=== PATIENT | female | born 1980 | race Caucasian/White ===

== ENCOUNTER 2016-10-28 13:57 | Outpatient (RCR) | payer BC ==
--- OUTSIDE RECORDS SUMMARY | 2016-08-08 09:07 | XMS REPORT | Continuity of Care Document ---
Author Author [facility] Organization [facility] Address Unknown Phone Unavailable Care Team Providers Care Collect On Delivery Clerk Name Role Phone Robert Campos PCP [phone] Source Comments Some departments are not documenting in the electronic medical record. If you do not see the information that you expected, contact Release of Information in the Health Information Management department at [phone] for further assistance in locating additional records.[facility] Active Allergies and Adverse Reactions Allergen Noted Date Severity Reactions Comments Doxycycline 05/10/2016 Medium HIVES Sulfa (Sulfonamide 02/26/2016 Medium HIVES Antibiotics) Current Medications Prescription Sig. Disp. Refills Start End Date Status Date MULTIVITAMIN PO Take 1 Cap by mouth Active daily. levothyroxine (SYNTHROID) Take 88 mcg by mouth Active 88 mcg tablet daily. meloxicam (MOBIC) 15 mg Take by mouth as Needed Active tablet for Pain. loratadine (CLARITIN) 10 Take 10 mg by mouth as Active mg tablet Needed. diazepam (VALIUM) 5 mg Take 1 Tab by mouth every 40 Tab 0 04/08/20 Active tablet 6 hours as needed. 16 lidocaine-prilocaine Place a quarter size of 1 g 1 05/20/20 Active (EMLA) 2.5-2.5 % topical cream over port site 16 cream 30-45 minutes prior to having port accessed. oxyCODONE/acetaminophen Take 1-2 Tabs by mouth 40 Tab 0 05/22/20 Active (PERCOCET; ENDOCET; every 4 hours as needed 16 ROXICET) 5/325 mg tablet dexamethasone (DECADRON) Take 1 Tab by mouth twice 24 Tab 0 05/25/20 Active 4 mg tablet daily. Take 1 tab in the 16 am & pm the 3 days following chemo. ondansetron hcl (ZOFRAN Take 1 Tab by mouth every 21 Tab 3 05/25/20 Active ( HYDROCHLORIDE)) 4 mg 8 hours as needed for 16 tablet Nausea or Vomiting. prochlorperazine maleate Take 1 Tab by mouth every 30 Tab 3 05/25/20 Active (COMPAZINE) 10 mg tablet 6 hours as needed for 16 Nausea or Vomiting. LORazepam (ATIVAN) 0.5 mg Take 1 Tab by mouth every 30 Tab 0 05/25/20 Active tablet 6 hours as needed for 16 Nausea or Vomiting (insomnia). vitamins, multiple Take 1 Tab by mouth Active (MULTIPLE VITAMINS) daily. tablet Lactobacillus rhamnosus Take 1 Cap by mouth as Active GG (LACTOBACILLUS directed daily with RHAMNOSUS (GG)) 15 breakfast. 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 Oakes is a female who presented to [facility] on 02/25/2016 at age 35 for evaluation of left breast cancer. Left breast sono-guided biopsy 02/15/16 ([place], [place]) revealed grade 1 invasive ductal carcinoma. She underwent left areola sparing mastectomy/SLNB/TE placement on 03/30/16. Final pathology revealed 1.9 cm of grade 1 IDC, DCIS absent, LVI absent, all margins at least 1 cm, and 0/6 lymph nodes. BREAST IMAGING: Mammogram: -- Left diagnostic mammogram 02/15/16 ([place], [place]) revealed a 1.6 cm mass density at 7:00 with indistinct borders and spiculation. No other abnormalities were seen. Ultrasound: -- Left breast biopsy 02/15/16 ([place], [place]) revealed a 1.5 cm solid structure at 6-7:00. There was a 5 mm hyperechoic lymph node at 4:00. MRI: -- Bilateral breast MRI 03/03/16 () revealed RIGHT BREAST: There was no evidence of abnormal enhancement, mass, or axillary/internal mammary adenopathy. LEFT BREAST: There was a 1.2 x 1.7 x 1.3 cm solitary enhancing mass compatible with known malignancy demonstrating predominantly persistent enhancement kinetics at 7:00, 6 cm posterior to the nipple. No additional sites of abnormal mass or non mass enhancement were seen in the left breast. There was no left axillary or internal mammary adenopathy. REPRODUCTIVE HEALTH: Age at first Menarche: 10 Age at First Live : 18 Age at Menopause: premenopausal : 5 Para: 4 : 1 year PROCEDURE: Left areola sparing mastectomy/SLNB/TE placement, 03/30/16 PERTINENT PMH: Hypothyroidism, depression FAMILY HISTORY: First cousin with breast cancer PHYSICAL EXAM on PRESENTATION: Left breast: discrete mass at 7:00 5-6cm FTN, freely mobile from chest wall. Right breast: No palpable breast masses. No skin, nipple, or areolar change. No supraclavicular or axillary adenopathy bilaterally. MEDICAL ONCOLOGY: Dr. aGrcia REFERRED BY: Dr. Chandni Starks Most Recent Encounters Date Type Specialty Providers Description 07/22/2016 [facility] Oncology Daphney Garcia MD Encounter 07/22/2016 Office Visit Oncology Daphney Garcia MD Malignant neoplasm of lower-inner quadrant of left female breast (HCC) (Primary Dx) 07/22/2016 Nurse Only Plastic Surgery Shilpa Hunter RN 07/21/2016 Telephone Daphney Oconnell MD Results - labs 07/19/2016 Telephone Oncology Daphney Garcia MD Chemotherapy 07/08/2016 [facility] Daphney Oconnell MD Encounter 07/08/2016 Office Visit Daphney Oconnell MD Malignant neoplasm of left female breast, unspecified site of breast (HCC) (Primary Dx) 07/08/2016 Nurse Only Plastic Surgery Shilpa Hunter, EDGAR 07/08/2016 Nurse Only Breast Clinic / Breast María Elena Antunez MD At risk for lymphedema Center Fournier, Ashtyn Oneill RN (Primary Dx) 07/07/2016 Telephone Daphney Oconnell MD Results 06/24/2016 [facility] Oncology Daphney Garcia MD Encounter 06/24/2016 Office Visit Daphney Oconnell MD History of left breast cancer (Primary Dx) 06/24/2016 Nurse Only Plastic Surgery Shilpa Hunter RN 06/23/2016 Telephone Daphney Oconnell MD Results - CBC/CMP 06/16/2016 Telephone Oncology Daphney Garcia MD Heme/Onc Care 06/16/2016 Telephone Oncology María Elena Antunez MD Appointment Request 06/10/2016 [facility] Oncology Daphney Garcia MD Encounter 06/10/2016 Office Visit Oncology Daphney Garcia MD Malignant neoplasm of right female breast, unspecified site of breast (HCC) (Primary Dx) 06/10/2016 Nurse Only Oncology Daphney Garcia MD Malignant neoplasm of lower-inner quadrant of left female breast (HCC) (Primary Dx) 06/10/2016 Nurse Only Plastic Surgery Shilpa Hunter RN 06/10/2016 Documentation Oncology Daiana Anderson RD 06/02/2016 Telephone Oncology Daphney Garcia MD Heme/Onc Care 05/26/2016 Office Visit Plastic Surgery Radu Ramirez MD Malignant neoplasm of lower-inner quadrant of left female breast (HCC) (Primary Dx); Infection of breast tissue medical bill processor, subsequent encounter 05/26/2016 Office Visit Oncology Jeannine Siu APRN-ABRAHAM Malignant neoplasm of lower-inner quadrant of left female breast (HCC) (Primary Dx) 05/26/2016 [facility] Oncology Jeannine Siu APRN-POLYSOMNOGRAPHY TECHNOLOGIST Encounter 05/26/2016 [facility] Cardiology Daphney Garcia MD Encounter 05/25/2016 Telephone Plastic Surgery Radu Ramirez MD General Question 05/25/2016 Orders Only Oncology Daphney Garcia MD Malignant neoplasm of female breast, unspecified laterality, unspecified site of breast (HCC) (Primary Dx) 05/24/2016 Telephone Plastic Surgery Radu Ramirez MD Follow-up Phone Call 05/23/2016 Telephone Plastic Surgery Radu Ramirez MD Post-hospital Follow Up 05/21/2016 Surgery Radu Ramirez MD Replacement of left breast tissue medical bill processor with pocket washout 05/20/2016 Anesthesia Jose Brown, SRNA Event 05/20/2016 Telephone Oncology Daphney Garcia MD Medication Question 05/20/2016 Orders Only Oncology Daphney Garcia MD 05/19/2016 [facility] Burn Surgery / Burn Care Radu Ramirez MD Infection of breast - Encounter tissue medical bill processor (HCC) 05/22/2016 05/19/2016 Prep for Case Plastic Surgery Radu Ramirez MD 05/18/2016 Telephone Plastic Surgery Radu Ramirez MD Post-Op Problem 05/17/2016 Telephone Plastic Surgery Radu Ramirez MD Post-hospital Follow Up 05/17/2016 Documentation Plastic Surgery Radu Ramirez MD 05/14/2016 Orders Only Plastic Surgery Radu Ramirez MD Cellulitis of chest wall (Primary Dx) 05/13/2016 Orders Only Oncology Daphney Garcia MD Malignant neoplasm of lower-inner quadrant of left female breast (HCC) (Primary Dx) 05/11/2016 Orders Only Oncology Daphney Garcia MD 05/11/2016 Orders Only Oncology Daphney Garcia MD 05/11/2016 Telephone Oncology Daphney Garcia MD Heme/Onc Care 05/11/2016 Orders Only Oncology Daphney Garcia MD Malignant neoplasm of left female breast, unspecified site of breast (HCC) (Primary Dx) 05/11/2016 Orders Only Oncology Daphney Garcia MD Encounter for monitoring cardiotoxic drug therapy (Primary Dx) 05/10/2016 Surgery Radu Ramirez MD DEBRIDEMENT OF LEFT BREAST AND WASHOUT 05/09/2016 Anesthesia Arnoldo Valverde SRNA Event Immunizations Name Dates Previously Given Next Due Flu Vaccine=>3 YO 06/11/2015 (Historical) Social History Tobacco Use Types Packs/Day Years Used Date Never Smoker Smokeless Tobacco: Never Used Alcohol Use Drinks/Week oz/Week Comments No 0 Standard 0.0 drinks or equivalent Last Filed Vital Signs Vital Sign Reading Time Taken Blood Pressure 110/69 07/22/2016 11:35 AM [facility] Pulse 72 07/22/2016 11:35 AM [facility] Temperature 36.7 C (98 F) 07/22/2016 11:35 AM [facility] Respiratory Rate 16 07/22/2016 11:35 AM [facility] Height 1.676 m (5' 5.98") 07/22/2016 11:35 AM [facility] Weight 97.796 kg (215 lb 9.6 oz) 07/22/2016 11:35 AM [facility] Body Mass Index 34.82 07/22/2016 11:35 AM [facility] Oxygen Saturation 100% 07/22/2016 11:35 AM [facility] Plan of Care Date Type Specialty Providers Description 08/16/2016 Appointment Plastic Surgery Shilpa Hunter, RN [address] [place] [address] [phone] (Fax) 10/11/2016 Appointment Breast Clinic / Breast María Elena Antunez MD Center [address] [place] [address] [phone] (Fax) 10/11/2016 Appointment Breast Clinic / Breast Gregoria Crawford RN Center 10/11/2016 Appointment Radiology María Elena Antunez MD [address] [place] [address] [phone] (Fax) Health Maintenance Due Date Last Done Comments Physical (Comprehensive) 1985 Exam Pertussis Vaccine 1989 Tetanus Vaccine 1995 Cervical Cancer Screening 1999 Influenza Vaccine 05/12/2016 06/11/2015 Procedures from Last 3 Months Procedure Name Priority Date/Time Associated Diagnosis Comments PROCEDURES-SCAN 05/24/2016 Results for this 2:11 PM CDT procedure are in the results section. Replacement of left 05/21/2016 Infection of breast breast tissue medical bill processor 8:00 AM CDT tissue medical bill processor (HCC) with pocket washout CONSULT IV THERAPY TEAM Routine 05/19/2016 2:45 PM CDT PROCEDURES-SCAN 05/11/2016 Results for this 2:29 PM CDT procedure are in the results section. INSERTION VENOUS ACCESS 05/10/2016 Breast cancer (HCC) PORT 10:35 AM CDT DEBRIDEMENT OF LEFT 05/10/2016 Breast cancer (HCC) BREAST AND WASHOUT 10:35 AM CDT Results from Last 3 Months COMPREHENSIVE METABOLIC PANEL (06/10/2016 9:41 AM)Only the most recent of 2 results within the time period is included. Component Value Range Sodium 137 137-147 MMOL/L Potassium 3.7 3.5-5.1 MMOL/L Chloride 105 98-110 MMOL/L Glucose 82 70-100 MG/DL Blood Urea Nitrogen 14 7-25 MG/DL Creatinine 0.93 0.4-1.00 MG/DL Calcium 8.9 8.5-10.6 MG/DL Total Protein 6.8 6.0-8.0 G/DL Total Bilirubin 0.6 0.3-1.2 MG/DL Albumin 3.7 3.5-5.0 G/DL Alk Phosphatase 47 25-110 U/L AST (SGOT) 16 7-40 U/L CO2 27 21-30 MMOL/L ALT (SGPT) 10 7-56 U/L Anion Gap 5 3-12 eGFR Non >60Comment: >60 mL/min The eGFR is not validated for use in drug dosing adjustments. Continue to use estimated creatinine clearance per dosing reference text. Please contact the Clinical Pharmacist for questions. eGFR >60Comment: >60 mL/min The eGFR is not validated for use in drug dosing adjustments. Continue to use estimated creatinine clearance per dosing reference text. Please contact the Clinical Pharmacist for questions. Specimen Blood CBC AND DIFF (06/10/2016 9:41 AM)Only the most recent of 4 results within the time period is included. Component Value Range White Blood Cells 7.2 4.5-11.0 K/UL RBC 3.89 (L) 4.0-5.0 M/UL Hemoglobin 10.9 (L) 12.0-15.0 GM/DL Hematocrit 32.9 (L) 36-45 % MCV 84.7 80-100 FL MCH 27.9 26-34 PG MCHC 33.0 32.0-36.0 G/DL RDW 13.3 11-15 % Platelet Count 198 150-400 K/UL MPV 7.6 7-11 FL Neutrophils 60 41-77 % Lymphocytes 25 24-44 % Monocytes 8 4-12 % Eosinophils 6 (H) 0-5 % Basophils 1 0-2 % Absolute Neutrophil Count 4.40 1.8-7.0 K/UL Absolute Lymph Count 1.80 1.0-4.8 K/UL Absolute Monocyte Count 0.50 0-0.80 K/UL Absolute Eosinophil Count 0.40 0-0.45 K/UL Absolute Basophil Count 0.10 0-0.20 K/UL Specimen Blood 2-D + DOPPLER ECHOCARDIOGRAM (05/26/2016 10:48 AM) Component Value Range BSA 2.08 m2 LVIDD 4.6 3.9-5.3 cm LVIDS 2.8 cm IVS 1.0 0.6-0.9 cm PW 1.0 0.6-0.9 cm FS 39.13 28-44 % EF 66.52 % LA size 2.7 2.7-3.8 cm LA volume 55.6 22-52 mL Left Atrium Index 26.73 10-32 Right Ventricular Basal 3.6 cm (2.4-4.2) Diameter Right Atrial Area 18.6 cm2 (<=18) Right Ventricular Mid 3.0 cm (2.0-3.5) Diameter Right Atrial Major 5.2 cm (<=5.3) Dimension Right Ventricular Long 8.3 cm (5.6-8.6) Diameter Right Atrial Minor 4.1 cm (<=4.4) Dimension Sinus 3.2 2.1-3.5 cm AV peak velocity 1.0 m/s TV rest pulmonary artery 17 mmHg pressure E/A ratio 2.21 TDI e' 0.160 m/s E/E' ratio 4.56 MV Peak E Brian PW 0.730 m/s MV Peak A Brian 0.330 m/s Narrative 1. No regional wall motion abnormalities are seen. Overall LV systolic function appears normal. The estimated left ventricular ejection fraction is 55-60%. 2. Normal left ventricular diastolic function. 3. Right ventricular contractility appears normal. 4. Normal chamber dimensions. 5. There is no evidence of significant valvular regurgitation or stenosis by doppler exam. 6. No pericardial effusion is seen. PROCEDURES-SCAN (05/24/2016 2:11 PM) Narrative Ordered by an unspecified provider. CULTURE-TB (AFB) (05/21/2016 9:00 AM)Only the most recent of 3 results within the time period is included. Component Value Range Battery Name AFB CULTURE Specimen Description SWAB 1 L BREAST Special Requests Specimen was received on a swab.A negative result from this specimen is not considered reliable for acid fast culture. Culture NO GROWTH OF MYCOBACTERIA AT 6 WEEKS Report Status FINAL 07/11/2016 Specimen Swab GRAM STAIN (05/21/2016 9:00 AM)Only the most recent of 3 results within the time period is included. Component Value Range Battery Name GRAM STAIN Specimen Description SWAB 1 L BR FLUID Special Requests NONE Gram Stain RARE NEUTROPHILS NO ORGANISMS SEEN Report Status FINAL 05/21/2016 Specimen Swab CULTURE-FUNGAL,OTHER (05/21/2016 9:00 AM)Only the most recent of 3 results within the time period is included. Component Value Range Battery Name FUNGUS CULTURE Specimen Description SWAB 1 L BR FLUID Special Requests NONE Culture NO GROWTH OF FUNGUS AT 4 WEEKS Report Status FINAL 06/20/2016 Specimen Swab CULTURE-WOUND/TISSUE/FLUID(AEROBIC ONLY)W/SENSITIVITY (05/21/2016 9:00 AM)Only the most recent of 3 results within the time period is included. Component Value Range Battery Name ROUTINE CULTURE Specimen Description SWAB 1 L BR FLUID Special Requests NONE Direct Gram Stain RARE NEUTROPHILS NO ORGANISMS SEEN Culture 3 Colonies ACHROMOBACTER SPECIES (A) Report Status FINAL 05/26/2016 Organism ID 3 Colonies ACHROMOBACTER SPECIES Specimen Swab Organism Antibiotic Method Susceptibility 3 colonies achromobacter species Amikacin SUSANA >32 RESISTANT: Resistant (MCG/ML) INTERPRETA TION 3 colonies achromobacter species Ceftriaxone SUSANA >32 RESISTANT: Resistant (MCG/ML) INTERPRETA TION 3 colonies achromobacter species Gentamicin SUSANA >8 RESISTANT: Resistant (MCG/ML) INTERPRETA TION 3 colonies achromobacter species Levofloxacin SUSANA 2 SUSCEPTIBLE: (MCG/ML) Susceptible INTERPRETA TION 3 colonies achromobacter species Piperacil/Tazobactam SUSANA <=2/4 SUSCEPTIBLE: (MCG/ML) Susceptible INTERPRETA TION 3 colonies achromobacter species Trimethsulfa SUSANA <=0.5/9.5 SUSCEPTIBLE : (MCG/ML) Susceptible INTERPRETA TION 3 colonies achromobacter species Method SUSANA SUSANA (MCG/ML) (MCG/ML) INTERPRETATION INTERPRETA TION SURGICAL PATHOLOGY (05/21/2016 8:54 AM)Only the most recent of 2 results within the time period is included. Component Value Range PATHOLOGY REPORT [facility] [email or web address] Oswald Morfin MD, PhD, Director of Anatomic Pathology Department of Pathology and Laboratory Medicine [address] [place] [phone] Surgical Pathology Office: [phone] SURGICAL PATHOLOGY REPORT NAME: KHADIJAH OAKES SURG PATH #: [id number] MR #: [id number] SPECIMEN CLASS: SR BILLING #: [id number] ALT ID #: LOCATION: DISCHARGED DATE OF PROCEDURE: 05/21/2016 AGE: 35 SEX: F DATE RECEIVED: 05/23/2016 : 1980 TIME RECEIVED: 08:43 PHYSICIAN: RADU RAMIREZ MD DATE OF REPORT: 05/24/2016 COPY TO: DATE OF PRINTIN05/24/2016 ################################################## ###################### Final Diagnosis: A. Soft tissue, "left breast capsule", excision: Fibrin and fibrous tissue with inflammation. B. "Left breast tissue medical bill processor", removal: See gross description. C. Skin and subcutaneous tissue, "left breast skin and soft tissue", excision: Acute and chronic inflammation and granulation tissue. Attestation: By this signature, I attest that I have personally formulated the final interpretation expressed in this report and that the above diagnosis is based upon my examination of the slides and/or other material indicated in this report. +++Electronically Signed Out By+++ ksw/05/23/2016 Interpreted by: Rekha Jo MD, Attending Physician 05/24/2016 ################################################## ###################### Material Received: A: left breast capsule B: left breast tissue medical bill processor C: left breast skin and soft tissue History: 35-year-old female with a history of infection and breast tissue medical bill processor. Gross Description: A. Received in formalin labeled with the patient's name and "left breast capsule" is a 1.8 x 0.6 cm aggregate of white-quintanilla, irregular fragments of soft tissue. The entire specimen is submitted in cassette A1. (sld) B. Received without fixative labeled the patient's name and "left breast tissue medical bill processor" is a 14.5 x 14.0 x 3.5 cm quintanilla-white, rubbery translucent fluid filled sac with a central 5.5 x 5.5 cm white-quintanilla, translucent rubbery circular attachment. On the posterior side there is written "Ruffin" and "[id number], TH 550 cc". The specimen is submitted for gross consultation only. (sld) C. Received in formalin labeled with the patient's name and "left breast skin and soft tissue" is a 4.5 x 2.0 x 0.8 cm aggregate of white-quintanilla, irregular fragments of skin. Loader Operator/Ground Leader sections are submitted in cassette C1. (sld) /05/23/2016 VANCOMYCIN TROUGH (05/21/2016 3:45 AM) Component Value Range Vancomycin Trough 14.4 10.0-20.0 MCG/ML Specimen Blood, venous - Blood BASIC METABOLIC PANEL (05/21/2016 3:45 AM)Only the most recent of 2 results within the time period is included. Component Value Range Sodium 138 137-147 MMOL/L Potassium 3.8 3.5-5.1 MMOL/L Chloride 105 98-110 MMOL/L CO2 24 21-30 MMOL/L Anion Gap 9 3-12 Glucose 88 70-100 MG/DL Blood Urea Nitrogen 12 7-25 MG/DL Creatinine 0.77 0.4-1.00 MG/DL Calcium 8.6 8.5-10.6 MG/DL eGFR Non >60Comment: >60 mL/min The eGFR is not validated for use in drug dosing adjustments. Continue to use estimated creatinine clearance per dosing reference text. Please contact the Clinical Pharmacist for questions. eGFR >60Comment: >60 mL/min The eGFR is not validated for use in drug dosing adjustments. Continue to use estimated creatinine clearance per dosing reference text. Please contact the Clinical Pharmacist for questions. Specimen Blood VRE SCREEN (05/19/2016 5:44 PM) Component Value Range Battery Name VRE SCREEN Specimen Description PERIRECTAL SWAB Special Requests NONE Culture NO VRE ISOLATED Report Status FINAL 05/20/2016 Specimen Perirectal Swab MRSA SCREEN (05/19/2016 5:44 PM) Component Value Range Battery Name MRSA SCREEN Specimen Description NASAL Special Requests NONE Culture NO MRSA ISOLATED Report Status FINAL 05/20/2016 Specimen Nasal PROCEDURES-SCAN (05/11/2016 2:29 PM) Narrative Ordered by an unspecified provider. FLUORO MOBILE IN OR (05/10/2016 11:15 AM) Narrative This order has been auto finalized and does not contain a result. TEST-URINE (05/10/2016 9:00 AM) Component Value Range Urine-HCG NEG Specific [place] 1.014 Specimen Urine
[2016-08-12 10:59] LABS: BASOPHILS % (AUTO) 0 % (0-10); EOSINOPHILS % (AUTO) 0 % (0-10); LYMPHOCYTES # (AUTO) 0.3 X 10^3 (1.0-4.0); LYMPHOCYTES % (AUTO) 5 % (12-44); MEAN CORPUSCULAR HEMOGLOBIN 30 PG (25-34); MEAN CORPUSCULAR HGB CONC 34 G/DL (32-36); MEAN CORPUSCULAR VOLUME 89 FL (80-99); MEAN PLATELET VOLUME 8.5 FL (7.4-10.4); MONOCYTES % (AUTO) 1 % (0-12); NEUTROPHILS # (AUTO) 6.5 X 10^3 (1.8-7.8); NEUTROPHILS % (AUTO) 95 % (42-75); PLATELET COUNT 268 10^3/uL (130-400); RED BLOOD COUNT 3.21 10^6/uL (4.35-5.85); RED CELL DISTRIBUTION WIDTH 19.7 % (10.0-14.5); WHITE BLOOD COUNT 6.8 10^3/uL (4.3-11.0)
[2016-08-12 11:26] LABS: ALANINE AMINOTRANSFERASE 44 U/L (0-55); ALBUMIN 4.4 G/DL (3.2-4.5); ANION GAP 9 MMOL/L (5-14); ASPARTATE AMINO TRANSFERASE 27 U/L (5-34); BILIRUBIN,TOTAL 0.4 MG/DL (0.1-1.0); BLOOD UREA NITROGEN 12 MG/DL (7-18); BUN/CREATININE RATIO 16; CALCIUM 9.2 MG/DL (8.5-10.1); CARBON DIOXIDE 21 MMOL/L (21-32); CHLORIDE 106 MMOL/L (98-107); CREATININE SERUM 0.73 MG/DL (0.60-1.30); GFR ESTIMATED > 60; GLUCOSE 222 MG/DL (70-105); POTASSIUM 3.9 MMOL/L (3.6-5.0); SODIUM 136 MMOL/L (135-145); TOTAL PROTEIN 7.1 G/DL (6.4-8.2)
[2016-08-19 14:47] LABS: BASOPHILS % (AUTO) 0 % (0-10); EOSINOPHILS % (AUTO) 0 % (0-10); LYMPHOCYTES # (AUTO) 0.5 X 10^3 (1.0-4.0); LYMPHOCYTES % (AUTO) 5 % (12-44); MEAN CORPUSCULAR HEMOGLOBIN 30 PG (25-34); MEAN CORPUSCULAR HGB CONC 33 G/DL (32-36); MEAN CORPUSCULAR VOLUME 90 FL (80-99); MEAN PLATELET VOLUME 8.7 FL (7.4-10.4); MONOCYTES # (AUTO) 0.1 X 10^3 (0.0-1.0); MONOCYTES % (AUTO) 1 % (0-12); NEUTROPHILS # (AUTO) 8.1 X 10^3 (1.8-7.8); NEUTROPHILS % (AUTO) 93 % (42-75); PLATELET COUNT 264 10^3/uL (130-400); RED CELL DISTRIBUTION WIDTH 18.3 % (10.0-14.5); WHITE BLOOD COUNT 8.7 10^3/uL (4.3-11.0)
[2016-08-19 15:06] LABS: ANION GAP 9 MMOL/L (5-14); BLOOD UREA NITROGEN 12 MG/DL (7-18); BUN/CREATININE RATIO 17; CALCIUM 9.2 MG/DL (8.5-10.1); CARBON DIOXIDE 22 MMOL/L (21-32); CHLORIDE 108 MMOL/L (98-107); GFR ESTIMATED > 60; GLUCOSE 141 MG/DL (70-105); SODIUM 139 MMOL/L (135-145)
[2016-08-26 15:05] LABS: BASOPHILS % (AUTO) 0 % (0-10); EOSINOPHILS % (AUTO) 0 % (0-10); LYMPHOCYTES # (AUTO) 0.4 X 10^3 (1.0-4.0); LYMPHOCYTES % (AUTO) 6 % (12-44); MEAN CORPUSCULAR HEMOGLOBIN 31 PG (25-34); MEAN CORPUSCULAR HGB CONC 34 G/DL (32-36); MEAN CORPUSCULAR VOLUME 91 FL (80-99); MEAN PLATELET VOLUME 9.2 FL (7.4-10.4); MONOCYTES # (AUTO) 0.1 X 10^3 (0.0-1.0); MONOCYTES % (AUTO) 1 % (0-12); NEUTROPHILS # (AUTO) 6.9 X 10^3 (1.8-7.8); NEUTROPHILS % (AUTO) 93 % (42-75); PLATELET COUNT 278 10^3/uL (130-400); RED BLOOD COUNT 3.01 10^6/uL (4.35-5.85); RED CELL DISTRIBUTION WIDTH 17.6 % (10.0-14.5); WHITE BLOOD COUNT 7.4 10^3/uL (4.3-11.0)
[2016-08-26 15:23] LABS: ANION GAP 11 MMOL/L (5-14); BLOOD UREA NITROGEN 13 MG/DL (7-18); BUN/CREATININE RATIO 18; CALCIUM 8.9 MG/DL (8.5-10.1); CARBON DIOXIDE 20 MMOL/L (21-32); CHLORIDE 106 MMOL/L (98-107); CREATININE SERUM 0.71 MG/DL (0.60-1.30); GFR ESTIMATED > 60; GLUCOSE 194 MG/DL (70-105); POTASSIUM 3.6 MMOL/L (3.6-5.0); SODIUM 137 MMOL/L (135-145)
[2016-09-01 08:59] LABS: BASOPHILS % (AUTO) 1 % (0-10); EOSINOPHILS # (AUTO) 0.1 10^3/uL (0.0-0.3); EOSINOPHILS % (AUTO) 3 % (0-10); LYMPHOCYTES # (AUTO) 0.7 X 10^3 (1.0-4.0); LYMPHOCYTES % (AUTO) 17 % (12-44); MEAN CORPUSCULAR HEMOGLOBIN 31 PG (25-34); MEAN CORPUSCULAR HGB CONC 33 G/DL (32-36); MEAN CORPUSCULAR VOLUME 93 FL (80-99); MEAN PLATELET VOLUME 8.4 FL (7.4-10.4); MONOCYTES # (AUTO) 0.2 X 10^3 (0.0-1.0); MONOCYTES % (AUTO) 6 % (0-12); NEUTROPHILS % (AUTO) 74 % (42-75); PLATELET COUNT 212 10^3/uL (130-400); RED BLOOD COUNT 2.98 10^6/uL (4.35-5.85); RED CELL DISTRIBUTION WIDTH 17.4 % (10.0-14.5); WHITE BLOOD COUNT 4.1 10^3/uL (4.3-11.0)
[2016-09-01 09:42] LABS: ALANINE AMINOTRANSFERASE 37 U/L (0-55); ANION GAP 6 MMOL/L (5-14); ASPARTATE AMINO TRANSFERASE 27 U/L (5-34); BILIRUBIN,TOTAL 0.7 MG/DL (0.1-1.0); BLOOD UREA NITROGEN 12 MG/DL (7-18); BUN/CREATININE RATIO 17; CALCIUM 8.7 MG/DL (8.5-10.1); CARBON DIOXIDE 24 MMOL/L (21-32); CHLORIDE 107 MMOL/L (98-107); CREATININE SERUM 0.71 MG/DL (0.60-1.30); GFR ESTIMATED > 60; GLUCOSE 95 MG/DL (70-105); MAGNESIUM 2.2 MG/DL (1.8-2.4); POTASSIUM 4.3 MMOL/L (3.6-5.0); SODIUM 137 MMOL/L (135-145); TOTAL PROTEIN 6.4 G/DL (6.4-8.2)
[2016-09-09 10:39] LABS: BASOPHILS % (AUTO) 1 % (0-10); EOSINOPHILS # (AUTO) 0.2 10^3/uL (0.0-0.3); EOSINOPHILS % (AUTO) 4 % (0-10); LYMPHOCYTES # (AUTO) 0.8 X 10^3 (1.0-4.0); LYMPHOCYTES % (AUTO) 18 % (12-44); MEAN CORPUSCULAR HEMOGLOBIN 31 PG (25-34); MEAN CORPUSCULAR HGB CONC 33 G/DL (32-36); MEAN CORPUSCULAR VOLUME 93 FL (80-99); MEAN PLATELET VOLUME 8.2 FL (7.4-10.4); MONOCYTES # (AUTO) 0.6 X 10^3 (0.0-1.0); MONOCYTES % (AUTO) 14 % (0-12); NEUTROPHILS # (AUTO) 2.7 X 10^3 (1.8-7.8); NEUTROPHILS % (AUTO) 63 % (42-75); PLATELET COUNT 230 10^3/uL (130-400); RED BLOOD COUNT 2.95 10^6/uL (4.35-5.85); RED CELL DISTRIBUTION WIDTH 17.1 % (10.0-14.5); WHITE BLOOD COUNT 4.3 10^3/uL (4.3-11.0)
[2016-09-09 11:02] LABS: ANION GAP 9 MMOL/L (5-14); BLOOD UREA NITROGEN 12 MG/DL (7-18); BUN/CREATININE RATIO 17; CALCIUM 8.6 MG/DL (8.5-10.1); CARBON DIOXIDE 20 MMOL/L (21-32); CHLORIDE 109 MMOL/L (98-107); CREATININE SERUM 0.71 MG/DL (0.60-1.30); GFR ESTIMATED > 60; GLUCOSE 82 MG/DL (70-105); SODIUM 138 MMOL/L (135-145)
[2016-09-16 14:39] LABS: BASOPHILS % (AUTO) 1 % (0-10); EOSINOPHILS # (AUTO) 0.2 10^3/uL (0.0-0.3); EOSINOPHILS % (AUTO) 3 % (0-10); LYMPHOCYTES % (AUTO) 19 % (12-44); MEAN CORPUSCULAR HEMOGLOBIN 31 PG (25-34); MEAN CORPUSCULAR HGB CONC 33 G/DL (32-36); MEAN CORPUSCULAR VOLUME 93 FL (80-99); MEAN PLATELET VOLUME 8.5 FL (7.4-10.4); MONOCYTES # (AUTO) 0.6 X 10^3 (0.0-1.0); MONOCYTES % (AUTO) 10 % (0-12); NEUTROPHILS # (AUTO) 3.7 X 10^3 (1.8-7.8); NEUTROPHILS % (AUTO) 68 % (42-75); PLATELET COUNT 225 10^3/uL (130-400); RED BLOOD COUNT 2.94 10^6/uL (4.35-5.85); RED CELL DISTRIBUTION WIDTH 15.5 % (10.0-14.5); WHITE BLOOD COUNT 5.5 10^3/uL (4.3-11.0)
[2016-09-16 14:57] LABS: ANION GAP 7 MMOL/L (5-14); BLOOD UREA NITROGEN 11 MG/DL (7-18); BUN/CREATININE RATIO 15; CALCIUM 8.9 MG/DL (8.5-10.1); CARBON DIOXIDE 25 MMOL/L (21-32); CHLORIDE 107 MMOL/L (98-107); CREATININE SERUM 0.73 MG/DL (0.60-1.30); GFR ESTIMATED > 60; GLUCOSE 90 MG/DL (70-105); POTASSIUM 3.8 MMOL/L (3.6-5.0); SODIUM 139 MMOL/L (135-145)
[2016-09-22 13:09] LABS: BASOPHILS % (AUTO) 1 % (0-10); EOSINOPHILS # (AUTO) 0.1 10^3/uL (0.0-0.3); EOSINOPHILS % (AUTO) 2 % (0-10); LYMPHOCYTES # (AUTO) 0.9 X 10^3 (1.0-4.0); LYMPHOCYTES % (AUTO) 23 % (12-44); MEAN CORPUSCULAR HEMOGLOBIN 30 PG (25-34); MEAN CORPUSCULAR HGB CONC 33 G/DL (32-36); MEAN CORPUSCULAR VOLUME 92 FL (80-99); MEAN PLATELET VOLUME 8.3 FL (7.4-10.4); MONOCYTES # (AUTO) 0.3 X 10^3 (0.0-1.0); MONOCYTES % (AUTO) 7 % (0-12); NEUTROPHILS # (AUTO) 2.7 X 10^3 (1.8-7.8); NEUTROPHILS % (AUTO) 67 % (42-75); PLATELET COUNT 207 10^3/uL (130-400); RED BLOOD COUNT 2.87 10^6/uL (4.35-5.85); RED CELL DISTRIBUTION WIDTH 15.3 % (10.0-14.5)
[2016-09-22 13:39] LABS: ANION GAP 8 MMOL/L (5-14); BLOOD UREA NITROGEN 12 MG/DL (7-18); BUN/CREATININE RATIO 16; CALCIUM 8.6 MG/DL (8.5-10.1); CARBON DIOXIDE 22 MMOL/L (21-32); CHLORIDE 107 MMOL/L (98-107); CREATININE SERUM 0.76 MG/DL (0.60-1.30); GFR ESTIMATED > 60; GLUCOSE 97 MG/DL (70-105); POTASSIUM 3.7 MMOL/L (3.6-5.0); SODIUM 137 MMOL/L (135-145)
[2016-09-29 14:05] LABS: BASOPHILS # (AUTO) 0.1 10^3/uL (0.0-0.1); BASOPHILS % (AUTO) 1 % (0-10); EOSINOPHILS # (AUTO) 0.2 10^3/uL (0.0-0.3); EOSINOPHILS % (AUTO) 3 % (0-10); LYMPHOCYTES % (AUTO) 18 % (12-44); MEAN CORPUSCULAR HEMOGLOBIN 31 PG (25-34); MEAN CORPUSCULAR HGB CONC 34 G/DL (32-36); MEAN CORPUSCULAR VOLUME 92 FL (80-99); MEAN PLATELET VOLUME 8.3 FL (7.4-10.4); MONOCYTES # (AUTO) 0.5 X 10^3 (0.0-1.0); MONOCYTES % (AUTO) 9 % (0-12); NEUTROPHILS # (AUTO) 3.8 X 10^3 (1.8-7.8); NEUTROPHILS % (AUTO) 69 % (42-75); PLATELET COUNT 243 10^3/uL (130-400); RED BLOOD COUNT 2.94 10^6/uL (4.35-5.85); RED CELL DISTRIBUTION WIDTH 15.7 % (10.0-14.5); WHITE BLOOD COUNT 5.5 10^3/uL (4.3-11.0)
[2016-09-29 14:39] LABS: ALANINE AMINOTRANSFERASE 32 U/L (0-55); ALBUMIN 3.9 G/DL (3.2-4.5); ANION GAP 9 MMOL/L (5-14); ASPARTATE AMINO TRANSFERASE 24 U/L (5-34); BILIRUBIN,TOTAL 0.6 MG/DL (0.1-1.0); BLOOD UREA NITROGEN 9 MG/DL (7-18); BUN/CREATININE RATIO 10; CALCIUM 8.9 MG/DL (8.5-10.1); CARBON DIOXIDE 24 MMOL/L (21-32); CHLORIDE 108 MMOL/L (98-107); CREATININE SERUM 0.86 MG/DL (0.60-1.30); GFR ESTIMATED > 60; GLUCOSE 92 MG/DL (70-105); MAGNESIUM 1.9 MG/DL (1.8-2.4); POTASSIUM 3.7 MMOL/L (3.6-5.0); SODIUM 141 MMOL/L (135-145); TOTAL PROTEIN 6.4 G/DL (6.4-8.2)
[2016-10-07 14:18] LABS: BASOPHILS % (AUTO) 0 % (0-10); EOSINOPHILS # (AUTO) 0.1 10^3/uL (0.0-0.3); EOSINOPHILS % (AUTO) 2 % (0-10); LYMPHOCYTES # (AUTO) 0.9 X 10^3 (1.0-4.0); LYMPHOCYTES % (AUTO) 18 % (12-44); MEAN CORPUSCULAR HEMOGLOBIN 31 PG (25-34); MEAN CORPUSCULAR HGB CONC 34 G/DL (32-36); MEAN CORPUSCULAR VOLUME 91 FL (80-99); MEAN PLATELET VOLUME 8.2 FL (7.4-10.4); MONOCYTES # (AUTO) 0.5 X 10^3 (0.0-1.0); MONOCYTES % (AUTO) 10 % (0-12); NEUTROPHILS # (AUTO) 3.4 X 10^3 (1.8-7.8); NEUTROPHILS % (AUTO) 70 % (42-75); PLATELET COUNT 222 10^3/uL (130-400); RED BLOOD COUNT 2.99 10^6/uL (4.35-5.85); WHITE BLOOD COUNT 4.9 10^3/uL (4.3-11.0)
[2016-10-07 14:35] LABS: ANION GAP 10 MMOL/L (5-14); BLOOD UREA NITROGEN 10 MG/DL (7-18); BUN/CREATININE RATIO 12; CALCIUM 8.9 MG/DL (8.5-10.1); CARBON DIOXIDE 22 MMOL/L (21-32); CHLORIDE 107 MMOL/L (98-107); CREATININE SERUM 0.85 MG/DL (0.60-1.30); GFR ESTIMATED > 60; GLUCOSE 89 MG/DL (70-105); POTASSIUM 3.6 MMOL/L (3.6-5.0); SODIUM 139 MMOL/L (135-145)
[2016-10-14 09:04] LABS: BASOPHILS % (AUTO) 1 % (0-10); EOSINOPHILS # (AUTO) 0.1 10^3/uL (0.0-0.3); EOSINOPHILS % (AUTO) 2 % (0-10); LYMPHOCYTES # (AUTO) 0.8 X 10^3 (1.0-4.0); LYMPHOCYTES % (AUTO) 19 % (12-44); MEAN CORPUSCULAR HEMOGLOBIN 31 PG (25-34); MEAN CORPUSCULAR HGB CONC 33 G/DL (32-36); MEAN CORPUSCULAR VOLUME 92 FL (80-99); MEAN PLATELET VOLUME 8.3 FL (7.4-10.4); MONOCYTES # (AUTO) 0.4 X 10^3 (0.0-1.0); MONOCYTES % (AUTO) 8 % (0-12); NEUTROPHILS # (AUTO) 3.2 X 10^3 (1.8-7.8); NEUTROPHILS % (AUTO) 71 % (42-75); PLATELET COUNT 223 10^3/uL (130-400); RED BLOOD COUNT 3.07 10^6/uL (4.35-5.85); RED CELL DISTRIBUTION WIDTH 15.6 % (10.0-14.5); WHITE BLOOD COUNT 4.5 10^3/uL (4.3-11.0)
[2016-10-14 09:31] LABS: ALANINE AMINOTRANSFERASE 24 U/L (0-55); ALBUMIN 3.8 G/DL (3.2-4.5); ANION GAP 10 MMOL/L (5-14); ASPARTATE AMINO TRANSFERASE 22 U/L (5-34); BILIRUBIN,TOTAL 0.6 MG/DL (0.1-1.0); BLOOD UREA NITROGEN 6 MG/DL (7-18); BUN/CREATININE RATIO 7; CALCIUM 8.3 MG/DL (8.5-10.1); CARBON DIOXIDE 20 MMOL/L (21-32); CHLORIDE 109 MMOL/L (98-107); CREATININE SERUM 0.81 MG/DL (0.60-1.30); GFR ESTIMATED > 60; GLUCOSE 106 MG/DL (70-105); MAGNESIUM 1.8 MG/DL (1.8-2.4); POTASSIUM 3.5 MMOL/L (3.6-5.0); SODIUM 139 MMOL/L (135-145); TOTAL PROTEIN 5.7 G/DL (6.4-8.2)
[2016-10-14 09:51] LABS: THYROID STIMULATING HORMONE 44.19 UIU/ML (0.35-4.94)
[2016-10-20 14:12] LABS: BASOPHILS % (AUTO) 1 % (0-10); EOSINOPHILS # (AUTO) 0.1 10^3/uL (0.0-0.3); EOSINOPHILS % (AUTO) 2 % (0-10); LYMPHOCYTES # (AUTO) 0.9 X 10^3 (1.0-4.0); LYMPHOCYTES % (AUTO) 22 % (12-44); MEAN CORPUSCULAR HEMOGLOBIN 31 PG (25-34); MEAN CORPUSCULAR HGB CONC 34 G/DL (32-36); MEAN CORPUSCULAR VOLUME 91 FL (80-99); MEAN PLATELET VOLUME 8.7 FL (7.4-10.4); MONOCYTES # (AUTO) 0.3 X 10^3 (0.0-1.0); MONOCYTES % (AUTO) 7 % (0-12); NEUTROPHILS # (AUTO) 2.7 X 10^3 (1.8-7.8); NEUTROPHILS % (AUTO) 69 % (42-75); PLATELET COUNT 221 10^3/uL (130-400); RED BLOOD COUNT 3.14 10^6/uL (4.35-5.85); RED CELL DISTRIBUTION WIDTH 15.7 % (10.0-14.5); WHITE BLOOD COUNT 3.9 10^3/uL (4.3-11.0)
[2016-10-20 14:37] LABS: ALANINE AMINOTRANSFERASE 30 U/L (0-55); ALBUMIN 4.1 G/DL (3.2-4.5); ANION GAP 8 MMOL/L (5-14); ASPARTATE AMINO TRANSFERASE 23 U/L (5-34); BILIRUBIN,TOTAL 0.7 MG/DL (0.1-1.0); BLOOD UREA NITROGEN 11 MG/DL (7-18); BUN/CREATININE RATIO 14; CARBON DIOXIDE 24 MMOL/L (21-32); CHLORIDE 108 MMOL/L (98-107); GFR ESTIMATED > 60; GLUCOSE 113 MG/DL (70-105); POTASSIUM 3.6 MMOL/L (3.6-5.0); SODIUM 140 MMOL/L (135-145); TOTAL PROTEIN 6.5 G/DL (6.4-8.2)
[~2016-10-28] VITALS: Ht 167.6 cm; Wt 96.6 kg
[~2016-10-28 13:57] MED LIST: FAMOTIDINE 20MG/2ML IV (CANCER CTR) IV SCH; NORMAL SALINE IV SCH; NS IV 500 ML (CANCER CENTER) IV SCH; ONDANSETRON 16 MG, DEXAMETHASONE 10 MG/NS 50 ML IVPB IV SCH; PACLITAXEL SEMI SYNTHETIC IV SCH; PALONOSETRON 0.25 MG, DEXAMETHASONE 10 MG/NS 50 ML IVPB IV PRN; diphenhydrAMINE 25 MG TAB (BENADRYL) CANCER CENTER PO SCH; diphenhydrAMINE 50 MG/ML INJ (CANCER CENTER) IV PRN
[2016-10-28 14:17] LABS: BASOPHILS % (AUTO) 0 % (0-10); EOSINOPHILS # (AUTO) 0.1 10^3/uL (0.0-0.3); EOSINOPHILS % (AUTO) 2 % (0-10); LYMPHOCYTES # (AUTO) 0.9 X 10^3 (1.0-4.0); LYMPHOCYTES % (AUTO) 19 % (12-44); MEAN CORPUSCULAR HEMOGLOBIN 31 PG (25-34); MEAN CORPUSCULAR HGB CONC 34 G/DL (32-36); MEAN CORPUSCULAR VOLUME 92 FL (80-99); MEAN PLATELET VOLUME 8.5 FL (7.4-10.4); MONOCYTES # (AUTO) 0.4 X 10^3 (0.0-1.0); MONOCYTES % (AUTO) 8 % (0-12); NEUTROPHILS # (AUTO) 3.6 X 10^3 (1.8-7.8); NEUTROPHILS % (AUTO) 71 % (42-75); PLATELET COUNT 243 10^3/uL (130-400); RED BLOOD COUNT 2.94 10^6/uL (4.35-5.85); RED CELL DISTRIBUTION WIDTH 15.3 % (10.0-14.5)
[2016-10-28 14:35] LABS: ALANINE AMINOTRANSFERASE 32 U/L (0-55); ALBUMIN 3.9 G/DL (3.2-4.5); ANION GAP 9 MMOL/L (5-14); ASPARTATE AMINO TRANSFERASE 22 U/L (5-34); BILIRUBIN,TOTAL 0.6 MG/DL (0.1-1.0); BLOOD UREA NITROGEN 14 MG/DL (7-18); BUN/CREATININE RATIO 19; CALCIUM 8.6 MG/DL (8.5-10.1); CARBON DIOXIDE 23 MMOL/L (21-32); CHLORIDE 108 MMOL/L (98-107); CREATININE SERUM 0.75 MG/DL (0.60-1.30); GFR ESTIMATED > 60; GLUCOSE 93 MG/DL (70-105); POTASSIUM 3.4 MMOL/L (3.6-5.0); SODIUM 140 MMOL/L (135-145); TOTAL PROTEIN 6.2 G/DL (6.4-8.2)
== END 2016-11-06 | disposition home or self-care (01) ==
LOC: ONC 13:57
PROVIDERS: ATTEND Internal Medicine Hematology & Oncology
DX: Z51.11 Encounter for antineoplastic chemotherapy (principal); C50.312 Malignant neoplasm of lower-inner quadrant of left female breast; E03.9 Hypothyroidism, unspecified; I00 Rheumatic fever without heart involvement; Z80.1 Family history of malignant neoplasm of trachea, bronchus and lung
CPT/HCPCS: 36591; 80048; 80053; 83735; 84443; 85025; 96375; 96413; 99213

== ENCOUNTER 2017-01-19 11:05 | Outpatient (RCR) | payer BC | END 2017-04-19 | disposition home or self-care (01) | LOC: ONC 11:05 | PROVIDERS: ATTEND Internal Medicine Hematology & Oncology | DX: C50.312 Malignant neoplasm of lower-inner quadrant of left female breast (principal); E03.9 Hypothyroidism, unspecified; I00 Rheumatic fever without heart involvement; Z80.1 Family history of malignant neoplasm of trachea, bronchus and lung; Z95.2 Presence of prosthetic heart valve; Z45.2 Encounter for adjustment and management of vascular access device | CPT/HCPCS: 96523 ==